=== PATIENT | male | born 1935 | race Caucasian/White ===

== ENCOUNTER → 2016-11-24 | Outpatient (CLI) | payer OTHER, MEDICARE ==
[~2016-11-24] MED LIST: IOPAMIDOL (ISOVUE 370) 100 ML BTL IV ONE
== END ==
LOC: FIMAGING 09:44
PROVIDERS: ATTEND Surgery
DX: I65.23 Occlusion and stenosis of bilateral carotid arteries (principal)
CPT/HCPCS: 70498; Q9967

== ENCOUNTER 2016-12-22 13:19 | Inpatient (IN) | payer OTHER, MEDICARE ==
[2016-12-22] MEDS ORDERED: LIDOCAINE 1% 2 ML INJ ID PRN (13:35)
[2016-12-22] MEDS ORDERED: LR 1,000 ML IV ONE (13:35)
[2016-12-22] MEDS ORDERED: THROMBIN (BOVINE) 5,000 UNIT VIAL TP ONE (13:52)
[2016-12-22] MEDS ORDERED: BUPIVACAINE 0.5% 30 ML SDV ONE (13:52)
--- NOTE | 2016-12-22 14:22 | PDHPUP ---
History & Physical Update H&P update statement: This history and physical update is based on an assessment of the patient which was completed after admission or registration (within 24 hours), but prior to the surgery/procedure. H&P update: H&P reviewed & patient examined, no change in patient's condition since H&P completed
--- NOTE | 2016-12-22 14:29 | PDANEPAE ---
ANE History of Present Illness Here for L CEA ANE Past Medical History - Cardiovascular History Hx Hypertension: No Hx Arrhythmias: Yes Hx Chest Pain: No Hx Coronary Artery / Peripheral Vascular Disease: No Hx CHF / Valvular Disease: No Hx Palpitations: No Cardiovascular History Comment: NEW DX AFIB - Pulmonary History Hx COPD: No Hx Asthma/Reactive Airway Disease: No Hx Recent Upper Respiratory Infection: No Hx Oxygen in Use at Home: No Hx Sleep Apnea: No Sleep Apnea Screening Result - Last Documented: Positive - Neurologic History Hx Cerebrovascular Accident: Yes Hx Seizures: No Neurologic History Comment: STROKE, TIA EXPRESSIVE APHASIA - Endocrine History Hx Diabetes: No - Renal History Hx Renal Disorders: No - Liver History Hx Hepatic Disorders: No - Neurological & Psychiatric Hx Hx Neurological and Psychiatric Disorders: No - Cancer History Hx Cancer: Yes Cancer History Comment: PROSTATE, PROSTATECTOMY 2003. SKIN - Congenital Disorder History Hx Congenital Disorders: No - GI History Hx Gastrointestinal Disorders: Yes - Other Health History Other Health History: GLAUCOMA - Chronic Pain History Chronic Pain: Yes (LOWER BACK & WAIST) - Surgical History Prior Surgeries: CATARACT WITH GLAUCOMA SHUNTS/ STAINLESS STEEL (EX-PRESS) ANE Review of Systems Review of systems is: negative Review of Systems: - Exercise capacity METS (RN): 3 METS ANE Patient History - Allergies Allergies/Adverse Reactions: bimatoprost [From Lumigan] Allergy (Verified 12/17/16 14:36) Rash - Home Medications Home medications: home medication list seen and reviewed Home Medications: Aspirin [Aspirin 81mg (*)] 81 mg PO DAILY 12/17/16 [Last Taken 12/22/16] Atorvastatin Calcium [Lipitor 10 mg (*)] 10 mg PO DAILY@12 12/17/16 [Last Taken 12/22/16] Dorzolamide 2% [Trusopt 2% (*)] 1 drops EACHEYE BID@12/17/16 [Last Taken 12/22/16] Multivitamins [Multivitamin (*)] 1 each PO DAILY 12/17/16 [Last Taken 12/18/16] RX: Herbals/Supplements -Info Only 1 ea PO DAILY 12/17/16 [Last Taken 12/18/16] - NPO status NPO Status: no food or drink >8 hours NPO Since - Liquids (Date): 12/22/16 NPO Since - Liquids (Time): 11:30 NPO Since - Solids (Date): 12/21/16 NPO Since - Solids (Time): 22:00 - Anes Hx Anes Hx: no prior problems - Smoking Hx Smoking Status: Never smoked - Family Anes Hx Family Hx Anesthesia Complications: NONE ANE Labs/Vital Signs - Vital Signs Blood Pressure: 171/77 Heart Rate: 56 Respiratory Rate: 18 O2 Sat (%): 96 Height: 180.34 cm Weight: 86.636 kg ANE Physical Exam - Airway Neck exam: FROM Mallampati Score: Class 1 - Pulmonary Pulmonary: no respiratory distress ANE Anesthesia Plan Anesthesia Plan: general endotracheal anesthesia Lines/Monitors: arterial line
--- NOTE | 2016-12-22 14:36 | POSTOPPROG ---
Post Op Note Date of Operation: 12/22/16 Surgeon: Donato Dietz Gel Coater: Irwin France Anesthesiologist: Isra Elias Anesthesia: GET(General Endotracheal) Pre-op Diagnosis: Bilateral carotid stenosis Post-op Diagnosis: Same Indication: Prior CVA Procedure: Left CEA Inf/Abcess present in the surg proc area at time of surgery?: No EBL: Minimal Specimen(s): plaque
[2016-12-22] MEDS ORDERED: HYDROmorphONE/DILAUDID 1 MG/ML INJ IVP PRN ×3 (14:37→17:19)
[2016-12-22] MEDS ORDERED: ACETAMINOPHEN 325 MG TAB PO PRN (14:37)
[2016-12-22] MEDS ORDERED: ONDANSETRON 4 MG/2 ML VIAL IVP PRN ×2 (14:37→15:49)
[2016-12-22] MEDS ORDERED: fentaNYL 100 MCG/2 ML INJ ONE ×2 (14:47→15:21)
[2016-12-22] MEDS ORDERED: PROPOFOL/EMULSION 500 MG/50 ML BOTTLE IV ONE (14:50)
[2016-12-22] MEDS ORDERED: LR 500 ML IV PRN (15:49)
[2016-12-22] MEDS ORDERED: PROMETHAZINE HCL 25 MG/ML INJ IVP PRN (15:49)
[2016-12-22] MEDS ORDERED: NALOXONE HCL 0.4 MG/ML INJ IVP PRN ×3 (15:49→17:19)
[2016-12-22] MEDS ORDERED: ALBUTEROL 3 ML DEYVIAL IH PRN ×2 (15:49→17:19)
[2016-12-22] MEDS ORDERED: fentaNYL 100 MCG/2 ML INJ IVP PRN ×2 (15:49→17:19)
[2016-12-22] MEDS ORDERED: SURGIFLO MATRIX KIT WITH THROMBIN TP ONE (16:40)
[2016-12-22] MEDS ORDERED: SUGAMMADEX SODIUM 200 MG/2 ML VIAL IVP ONE (16:43)
[2016-12-22] MEDS ORDERED: LABETALOL HCL 5 MG/ML 20 ML MDV ONE (16:43)
[2016-12-22] MEDS ORDERED: METOPROLOL TARTRATE 5 MG/5 ML INJ ONE (16:57)
[2016-12-22] MEDS ORDERED: LABETALOL HCL 5 MG/ML 20 ML MDV IVP PRN (17:18)
[2016-12-22] MEDS ORDERED: DEXAMETHASONE 4 MG/ML VIAL IVP PRN (17:19)
[2016-12-22] MEDS: HYDROCODONE/APAP 5/325 TAB PO PRN ×2 (19:49→23:04)
[2016-12-22] MEDS: IBUPROFEN 600 MG TAB PO SCH (20:49)
[2016-12-22] MEDS: DORZOLAMIDE 2% OPTH DROPS EACHEYE SCH (21:00)
[2016-12-23] MEDS: HYDROCODONE/APAP 5/325 TAB PO PRN (03:34)
[2016-12-23] MEDS: IBUPROFEN 600 MG TAB PO SCH (06:03)
[2016-12-23 08:04] VITALS: BP 111/66; PULSE 90; RESP 20; TEMP 98.6
[2016-12-23] MEDS: DORZOLAMIDE 2% OPTH DROPS EACHEYE SCH (08:22)
--- NOTE | 2016-12-23 08:36 | GOP ---
[f rep st] OPERATIVE REPORT DATE OF OPERATION: 12/22/2016 SURGEON: Donato Dietz MD CHANNELER RUNNER: Irwin France MD. ANESTHESIA: General. ANESTHESIOLOGIST: Dr. Isra Elias. PREOPERATIVE DIAGNOSIS: 1. Bilateral high-grade carotid stenosis. 2. History of stroke. POSTOPERATIVE DIAGNOSIS: 1. Bilateral high-grade carotid stenosis. 2. History of stroke. PROCEDURE PERFORMED: Left carotid endarterectomy. FINDINGS: INDICATIONS: An 81-year-old male with bilateral high-grade carotid artery stenoses and a recent stro ke. He is undergoing a left-sided carotid endarterectomy at this time. Risks and benefits were expl ained, including bleeding, infection, recurrent stenosis, nerve injury, stroke, heart attack, arrhyth virgil, as well as others. All questions were entertained. He desires to proceed. DESCRIPTION OF PROCEDURE: After general anesthesia was induced, the neck was preinjected with 0.5% M arcaine with epinephrine along the superficial cervical plexus and along the upper neck. Intraoperat jeffry ultrasonography was used to identify the carotid bifurcation, which is high riding beneath the le joaquín of the mandible. A longitudinal incision was created along the anterior aspect of the sternoclei domastoid muscle. The platysma muscle was divided. The anterior border of the sternocleidomastoid m uscle was dissected out to allow exposure of the carotid sheath. The facial vein branch was identifi ed, circumferentially encompassed, and divided between clamps and ties. The bifurcation was extremel y high riding just at the level of the digastric muscle. This and the hypoglossal nerve were easily identified and dissected off the neurovascular bundle. The superior thyroid artery was encompassed b etween vessel loops. The common carotid artery was circumferentially encompassed, as were the buying intern al and external carotid arteries. There was an extremely large calcific plaque coursing the first 2. 5 cm of the internal carotid artery. Distal to this was a very soft, normal-appearing, redundant seg ment of the carotid artery. A heparin bolus was administered. Occluding clamps were placed upon all 3 vessels. A longitudinal arteriotomy was created through the carotid bifurcation up into the inter nal carotid artery. The plaque was a combination of extremely friable, cheesy atheroma with a large, calcified outer shell. Using a [place] elevator, the plaque was completely dissected throughout its e ntirety. An excellent smooth tapering endpoint was obtained within the internal carotid artery. The artery was cleared of all loose fronds, as well as atheromatous deposits. Arteries were all fore-bl ed and back-bled. The internal carotid artery was of large size; thus, a patch was not utilized. Th e artery was closed in primary fashion with a running 6-0 Prolene suture. The arteries were forward- bled and back-bled for final closure, with flow being established through the external carotid artery , followed by the internal carotid artery. Excellent hemostasis was assured. The hypoglossal and va yunior nerves were confirmed intact. FLOSEAL was placed along the suture line prior to closure. The mu scle layers were all closed in layers, and subcutaneous layers were all closed with absorbable suture , followed by Dermabond. The patient was extubated in the operating room, moving all 4 extremities w ell, and taken to recovery room in good condition. Copy requested to: MARIO ALBERTO Cantor [facility] /[id number]/MODL
[2016-12-23 08:50] VITALS: O2SAT 92
--- NOTE | 2016-12-23 08:50 | SOAPPROG ---
SOAP Progress Note Assessment/Plan: Assessment:no c/o. no pain. no MATHEW. no cp or sob. no difficulty swallowing. avss. comfortable. neuro normal (tongue midline, normal bue/ble stregth and sensation). heart reg. lungs clear. neck large soft superficial ecchymosis. no bruit. 2+ pulse. no deep swelling. s/p l cea - doing great. neuro normal. home today. to start eliquis next week. ofc f/u as scheduled. reviewed with pt/dtr/nursing staff Plan: 12/23/16 08:48 Objective: Vital Signs Temp Pulse Resp BP Pulse Ox 37.0 C 90 20 111/66 87 L 12/23/16 07:58 12/23/16 07:58 12/23/16 07:58 12/23/16 07:58 12/23/16 07:58 12/22/16 12/23/16 12/24/16 05:59 05:59 05:59 Intake Total 400 Output Total 500 Balance -100 ICD10 Worksheet Patient Problems: Problems Problem Status Onset Carotid stenosis, symptomatic, with infarction Acute - ICD10 Problem Qualifiers (1) Carotid stenosis, symptomatic, with infarction
[2016-12-23] MEDS ORDERED: ASPIRIN 81 MG CHEWABLE TAB PO SCH (09:00)
--- NOTE | 2016-12-23 11:37 | ASDISCHSUM ---
Discharge Information Plan Status:Home with No Needs Medically Cleared to Leave:12/23/2016 Discharge Date:12/23/2016 09:22 AM CM D/C Disposition:Home, Routine, Self-Care ADT D/C Disposition:Home, Routine, Self-Care Projected Discharge Date:12/23/2016 09:22 AM Transportation at D/C:Family Discharge Delay Reason: Follow-Up Date:12/23/2016 09:22 AM Discharge Slot: Final Diagnosis: Placement Information Patient Contact Information Contact Name:MICHAEL Relationship:Daughter Address:[address] City:[place] Alternate Phone: State/Zip Code:[place] [address] Email: Financial Information Financial Class:CHRISTEN Primary Plan Desc:MEDICARE INPATIENT Primary Plan Number:[id number] Secondary Plan Desc:[employer]/MDR SUPPLEMENT Secondary Plan Number:[id number] Assessment Information Intervention Information
[2016-12-23] MEDS ORDERED: ATORVASTATIN CALCIUM 10 MG TAB PO SCH (12:00)
--- NOTE | 2016-12-23 13:52 | GDS ---
[f rep st] DISCHARGE SUMMARY REASON FOR ADMISSION: Symptomatic carotid stenosis. HOSPITAL COURSE: 81-year-old male with symptomatic bilateral carotid stenosis. He underwent an uncomplicated left carotid endarterectomy. He was discharged to home the following morning in good condition and neurologically intact. He was to resume all pre-hospital medications. No diet or activity restrictions were offered. He will start Eliquis for his newly diagnosed paroxysmal atrial fibrillation next week. He will be seen in followup by Dr. Dietz in 2 weeks as scheduled. Full discharge instructions were explained to the patient and daughter prior to leaving. /[id number]/MODL MTDD
== END 2016-12-23 09:22 | disposition home or self-care (01) | DRG 39 ==
LOC: F3E 13:19 → F2W 18:31
PROVIDERS: ADMIT Surgery; ATTEND Surgery
PROC: 03CL0ZZ Extirpation of Matter from Left Internal Carotid Artery, Open Approach (ICD-10-PCS; principal; 2016-12-22 15:00)
DX: I65.23 Occlusion and stenosis of bilateral carotid arteries (principal); I48.0 Paroxysmal atrial fibrillation; Z86.73 Personal history of transient ischemic attack (TIA), and cerebral infarction without residual deficits
CPT/HCPCS: J1644; J2704; J3010; J3490

== ENCOUNTER 2017-02-16 09:49 | Inpatient (IN) | payer OTHER, MEDICARE ==
[2017-02-16] MEDS ORDERED: LIDOCAINE 1% 2 ML INJ ID PRN (12:32)
[2017-02-16] MEDS ORDERED: LR 1,000 ML IV ONE (12:32)
[2017-02-16] MEDS ORDERED: BUPIVACAINE/EPI 0.5% 30 ML SDV ONE (14:33)
[2017-02-16] MEDS ORDERED: THROMBIN (BOVINE) 5,000 UNIT VIAL TP ONE (14:34)
[2017-02-16] MEDS ORDERED: fentaNYL 100 MCG/2 ML INJ ONE ×2 (14:46→19:08)
[2017-02-16] MEDS ORDERED: PROPOFOL/EMULSION 500 MG/50 ML BOTTLE IV ONE (14:46)
--- NOTE | 2017-02-16 15:00 | PDANEPAE ---
ANE Past Medical History - Cardiovascular History Hx Hypertension: No Hx Arrhythmias: Yes Hx Chest Pain: No Hx Coronary Artery / Peripheral Vascular Disease: No Hx CHF / Valvular Disease: No Hx Palpitations: No Cardiovascular History Comment: TIA due to B carotid stenosis. NEW DX AFIB - Pulmonary History Hx COPD: No Hx Asthma/Reactive Airway Disease: No Hx Recent Upper Respiratory Infection: No Hx Oxygen in Use at Home: No Hx Sleep Apnea: No Sleep Apnea Screening Result - Last Documented: Positive - Neurologic History Hx Cerebrovascular Accident: Yes Hx Seizures: No Neurologic History Comment: STROKE, TIA EXPRESSIVE APHASIA - Endocrine History Hx Diabetes: No - Renal History Hx Renal Disorders: No - Liver History Hx Hepatic Disorders: No - Neurological & Psychiatric Hx Hx Neurological and Psychiatric Disorders: No - Cancer History Hx Cancer: Yes Cancer History Comment: PROSTATE, PROSTATECTOMY 2003. SKIN - Congenital Disorder History Hx Congenital Disorders: No - GI History Hx Gastrointestinal Disorders: Yes - Other Health History Other Health History: GLAUCOMA - Chronic Pain History Chronic Pain: Yes (LOWER BACK & WAIST) - Surgical History Prior Surgeries: Left carotid endarterectomy. CATARACT removal. GLAUCOMA SHUNTS/ STAINLESS STEEL (EX-PRESS). prostate sx ANE Review of Systems Review of Systems: - Exercise capacity METS (RN): 4 METS ANE Patient History - Allergies Allergies/Adverse Reactions: bimatoprost [From Lumigan] Allergy (Verified 12/17/16 14:36) Rash - Home Medications Home Medications: Aspirin [Aspirin 81mg (*)] 81 mg PO DAILY 12/17/16 [Last Taken 02/16/17 08:00] Atorvastatin Calcium [Lipitor 10 mg (*)] 5 mg PO DAILY 12/17/16 [Last Taken 07/29 10:00] Dorzolamide 2% [Trusopt 2% (*)] 1 drops EACHEYE BID 12/17/16 [Last Taken 07:00] Herbals/Supplements -Info Only 1 ea PO DAILY 12/17/16 [Last Taken 02/09/17] Multivitamins [Multivitamin (*)] 1 each PO DAILY 12/17/16 [Last Taken 02/09/17] - NPO status NPO Since - Liquids (Date): 02/16/17 NPO Since - Liquids (Time): 11:00 NPO Since - Solids (Date): 02/15/17 NPO Since - Solids (Time): 22:00 - Smoking Hx Smoking Status: Never smoked - Family Anes Hx Family Hx Anesthesia Complications: NONE ANE Labs/Vital Signs - Vital Signs Blood Pressure: 133/81 Heart Rate: 58 Respiratory Rate: 16 O2 Sat (%): 94 Height: 185.42 cm Weight: 86.636 kg ANE Physical Exam - Airway Neck exam: decreased ROM Mallampati Score: Class 2 Mouth exam: normal dental/mouth exam - Pulmonary Pulmonary: no respiratory distress, no rales or rhonchi, clear to auscultation, reduced air movement - Cardiovascular Cardiovascular: regular rate and rhythym, no murmur, rub, or gallop, bradycardia - ASA Status ASA Status: III
[2017-02-16] MEDS ORDERED: ONDANSETRON 4 MG/2 ML VIAL IVP PRN (15:05)
[2017-02-16] MEDS ORDERED: ACETAMINOPHEN 325 MG TAB PO PRN (15:05)
--- NOTE | 2017-02-16 15:05 | POSTOPPROG ---
Post Op Note Date of Operation: 02/16/17 Surgeon: Donato Dietz Supervisor Hard Candy: Irwin France Anesthesiologist: Camille Ro Anesthesia: GET(General Endotracheal) Pre-op Diagnosis: Right Carotid Stenosis Post-op Diagnosis: Same Procedure: Right CEA Findings: Tortuous 90+% ICA Inf/Abcess present in the surg proc area at time of surgery?: No EBL: Minimal Specimen(s): plaque
[2017-02-16] MEDS ORDERED: DEXAMETHASONE 4 MG/ML VIAL IVP PRN (15:59)
[2017-02-16] MEDS ORDERED: ENALAPRILAT DIHYDRATE 1.25 MG/ML VIAL IVP PRN (15:59)
[2017-02-16] MEDS ORDERED: NALOXONE HCL 0.4 MG/ML INJ IVP PRN (15:59)
[2017-02-16] MEDS ORDERED: PHENYLEPHRINE HCL 100 MCG/ML SYR IVP PRN (15:59)
[2017-02-16] MEDS ORDERED: LR 500 ML IV PRN (15:59)
[2017-02-16] MEDS ORDERED: ALBUTEROL 3 ML DEYVIAL IH PRN (15:59)
[2017-02-16] MEDS ORDERED: LIDOCAINE 2% 5 ML SDV ONE (16:02)
[2017-02-16] MEDS ORDERED: SUGAMMADEX SODIUM 200 MG/2 ML VIAL IVP ONE (16:02)
[2017-02-16] MEDS ORDERED: HEPARIN 10,000 UNIT/10 ML MDV ONE (16:02)
[2017-02-16] MEDS ORDERED: ONDANSETRON 4 MG/2 ML VIAL ONE (16:02)
[2017-02-16] MEDS ORDERED: ROCURONIUM 50 MG/5 ML VIAL ONE (16:02)
[2017-02-16] MEDS ORDERED: PROPOFOL 200 MG/20 ML VIAL ONE (16:28)
[2017-02-16] MEDS ORDERED: SURGIFLO MATRIX KIT WITH THROMBIN 8ml TP ONE (17:04)
--- NOTE | 2017-02-16 17:43 | POSTANESTH ---
Post Anesthetic Evaluation Cardiovascular Status: Normal, Stable, Similar to Pre-Op Cond Respiratory Status: Normal, Stable, Similar to Pre-op Cond. Level of Consciousness/Mental Status: Mildly Sleepy, Arousable Pain Control: Adequate, Prn Tx Ordered Nausea/Vomiting Control: Adequate, Prn Tx Ordered Complications Possibly Related to Anesthesia: None Noted
[2017-02-16] MEDS ORDERED: ACETAMINOPHEN 325 MG TAB ONE (18:44)
[2017-02-16] MEDS: fentaNYL 100 MCG/2 ML INJ IVP PRN ×2 (19:09→19:18)
[2017-02-16] MEDS: IBUPROFEN 600 MG TAB PO SCH (21:38)
[2017-02-16] MEDS: HYDROCODONE/APAP 5/325 TAB PO PRN (21:48)
[2017-02-16] MEDS: DORZOLAMIDE 2% OPTH DROPS EACHEYE SCH (22:00)
--- NOTE | 2017-02-16 22:51 | GOP ---
[f rep st] OPERATIVE REPORT DATE OF OPERATION: 02/16/2017 SURGEON: Donato Dietz MD CHEMICAL CELL CHANGER: Irwin France MD ANESTHESIA: General. ANESTHESIOLOGIST: Dr Ro. PREOPERATIVE DIAGNOSIS: Right carotid stenosis. POSTOPERATIVE DIAGNOSIS: Right carotid stenosis. PROCEDURE PERFORMED: Right carotid endarterectomy. FINDINGS: See below. INDICATIONS: [id number] male with a bilateral high-grade carotid stenosis with prior stroke. He underwent a recent uneventful left carotid endarterectomy. He presents today for a right carotid endarterectomy. Surgical risks and benefits were explained of bleeding, infection, recurrent stenosis, stroke, nerve injury, cardio respiratory complications as well as others. All questions were answered. He desires to proceed. DESCRIPTION OF PROCEDURE: Prior to induction of general anesthesia, fiberoptic laryngoscopy was performed. Normal vocal cord mobility was noted with an E and A phonation. The scope was withdrawn. General anesthesia was subsequently induced. Local anesthetic was infiltrated along the sternocleidomastoid musculature. A longitudinal incision was created along the anterior border. The ansa cervicals was divided. The common carotid artery as well as internal, external and superior thyroid arteries were all circumferentially encompassed with vessel loops. As noted on the opposite side, the internal carotid artery was notably tortuous with a firm plaque within the bulb and proximal ICA. A heparin bolus was administered. The arteries were all occluded. The hypoglossal nerve had been identified and preserved as was the vagus nerve. The carotid arteriotomy was performed through the distal common carotid artery up and through the internal carotid artery. The poorly defined plaque was removed using a [place] elevator. This was taken to a smooth tapering endpoint within the internal carotid artery. All loose fronds were all individually retrieved. The arteries were all forward-bled and back-bled. Tacking sutures were placed upon the internal carotid artery intima. The arteriotomy was closed with a running 6-0 Prolene suture without the need for patching given the generous size of the patient's arteries. The arteries were again forebled and back bled through the external carotid artery prior to opening a flow back into the internal. Satisfactory hemostasis was assured. The neck was closed in layers with absorbables by Dermabond. The patient was taken to recovery room , extubated in good condition. He was noted to be moving all 4 extremities without difficulty. Copy requested to: Leah Clark /[id number]/MODL MTDD
--- NOTE | 2017-02-16 23:43 | SOAPPROG ---
SOAP Progress Note Assessment/Plan: Assessment: called by nursing staff regarding increasing neck swelling over last couple of hours. patient notes increasing discomfort with swallowing. vs 117/57. p 52. 97% 2L. comfortable. large right neck hematoma - deep. trachea midline. needs drainage. OR notified. patient and daughter at bedside in agreement. all questions entertained. Plan: 02/16/17 23:41 Objective: Vital Signs Temp Pulse Resp BP Pulse Ox 36.5 C 52 L 16 117/57 L 97 02/16/17 23:00 02/16/17 23:00 02/16/17 23:00 02/16/17 23:00 02/16/17 23:00 02/15/17 02/16/17 02/17/17 05:59 05:59 05:59 Intake Total 2400 Output Total 100 Balance 2300 ICD10 Worksheet Patient Problems: Problems Problem Status Onset Carotid stenosis, symptomatic, with infarction Acute
[2017-02-17] MEDS ORDERED: ONDANSETRON 4 MG/2 ML VIAL ONE ×2 (00:02→00:28)
--- NOTE | 2017-02-17 00:04 | PDANEPAE ---
ANE History of Present Illness 81 yo male s/p CEA today now with neck hematoma. ANE Past Medical History - Cardiovascular History Hx Hypertension: No Hx Arrhythmias: Yes Hx Chest Pain: No Hx Coronary Artery / Peripheral Vascular Disease: No Hx CHF / Valvular Disease: No Hx Palpitations: No Cardiovascular History Comment: TIA due to B carotid stenosis. NEW DX AFIB - Pulmonary History Hx COPD: No Hx Asthma/Reactive Airway Disease: No Hx Recent Upper Respiratory Infection: No Hx Oxygen in Use at Home: No Hx Sleep Apnea: No Sleep Apnea Screening Result - Last Documented: Positive - Neurologic History Hx Cerebrovascular Accident: Yes Hx Seizures: No Neurologic History Comment: STROKE, TIA EXPRESSIVE APHASIA - Endocrine History Hx Diabetes: No Hypothyroid: No - Renal History Hx Renal Disorders: No - Liver History Hx Hepatic Disorders: No - Neurological & Psychiatric Hx Hx Neurological and Psychiatric Disorders: No - Cancer History Hx Cancer: Yes Cancer History Comment: PROSTATE, PROSTATECTOMY 2003. SKIN - Congenital Disorder History Hx Congenital Disorders: No - GI History Hx Gastrointestinal Disorders: Yes - Other Health History Other Health History: GLAUCOMA - Chronic Pain History Chronic Pain: Yes (LOWER BACK & WAIST) - Surgical History Prior Surgeries: Left carotid endarterectomy. CATARACT removal. GLAUCOMA SHUNTS/ STAINLESS STEEL (EX-PRESS). prostate sx ANE Review of Systems Review of Systems: - Exercise capacity METS (RN): 4 METS - Systems Constitutional: Reports: diaphoresis Gastrointestinal: Reports: nausea Muscolosketal: Reports: neck pain (R neck hurts.) ANE Patient History - Allergies Allergies/Adverse Reactions: bimatoprost [From Lumigan] Allergy (Verified 12/17/16 14:36) Rash - Home Medications Home Medications: Aspirin [Aspirin 81mg (*)] 81 mg PO DAILY 12/17/16 [Last Taken 02/16/17 08:00] Atorvastatin Calcium [Lipitor 10 mg (*)] 5 mg PO DAILY 12/17/16 [Last Taken 07/29 10:00] Dorzolamide 2% [Trusopt 2% (*)] 1 drops EACHEYE BID 12/17/16 [Last Taken 07:00] Herbals/Supplements -Info Only 1 ea PO DAILY 12/17/16 [Last Taken 02/09/17] Multivitamins [Multivitamin (*)] 1 each PO DAILY 12/17/16 [Last Taken 02/09/17] - NPO status NPO Since - Liquids (Date): 02/16/17 NPO Since - Liquids (Time): 22:00 NPO Since - Solids (Date): 02/16/17 NPO Since - Solids (Time): 22:00 - Anes Hx Anes Hx: no prior problems - Smoking Hx Smoking Status: Never smoked - Alcohol Use Alcohol Use: None - Family Anes Hx Family Anes Hx: neg - N/A Family Hx Anesthesia Complications: NONE ANE Labs/Vital Signs - Vital Signs Blood Pressure: 117/57 Heart Rate: 52 Respiratory Rate: 16 O2 Sat (%): 97 Height: 185.42 cm Weight: 86.636 kg ANE Physical Exam - Airway Neck exam: increased neck circumference Mallampati Score: Class 3 - Pulmonary Pulmonary: clear to auscultation - Cardiovascular Cardiovascular: regular rate and rhythym - ASA Status ASA Status: III, E ANE Anesthesia Plan Anesthesia Plan: general endotracheal anesthesia
[2017-02-17] MEDS ORDERED: fentaNYL 250 MCG/5 ML INJ ONE (00:08)
[2017-02-17] MEDS ORDERED: PROPOFOL/EMULSION 500 MG/50 ML BOTTLE IV ONE (00:08)
[2017-02-17] MEDS ORDERED: ONDANSETRON 4 MG/2 ML VIAL IVP ONE (00:09)
[2017-02-17] MEDS ORDERED: BUPIVACAINE/EPI 0.5% 30 ML SDV ONE (00:29)
[2017-02-17] MEDS ORDERED: SUGAMMADEX SODIUM 200 MG/2 ML VIAL IVP ONE ×2 (00:32→00:52)
[2017-02-17] MEDS ORDERED: epHEDrine SULFATE 10 MG/ML SYR ONE ×2 (00:34→00:39)
[2017-02-17] MEDS ORDERED: LR 1,000 ML IV ONE (00:39)
[2017-02-17] MEDS ORDERED: ACETAMINOPHEN 500 MG TAB PO PRN (00:43)
[2017-02-17] MEDS ORDERED: ALBUTEROL 3 ML DEYVIAL IH PRN (00:43)
[2017-02-17] MEDS ORDERED: PROMETHAZINE HCL 25 MG/ML INJ IVP PRN (00:43)
[2017-02-17] MEDS ORDERED: NALOXONE HCL 0.4 MG/ML INJ IVP PRN (00:43)
[2017-02-17] MEDS ORDERED: fentaNYL 100 MCG/2 ML INJ IVP PRN (00:43)
[2017-02-17] MEDS ORDERED: HYDROCODONE/APAP 5/325 TAB PO PRN (00:43)
--- NOTE | 2017-02-17 00:58 | POSTOPPROG ---
Post Op Note Date of Operation: 02/17/17 Surgeon: Donato Dietz Anesthesiologist: Kallie Alvarez Anesthesia: GET(General Endotracheal) Pre-op Diagnosis: Postop neck hematoma Post-op Diagnosis: Same Procedure: Drainage of right neck hematoma Findings: subplatysmal isolated arterial muscle bleeding Inf/Abcess present in the surg proc area at time of surgery?: No EBL: Minimal
--- NOTE | 2017-02-17 01:26 | POSTANESTH ---
Post Anesthetic Evaluation Cardiovascular Status: Other, See Comment (irregular rhythm, will obtain 12 lead EKG for further evaluation. Pt has h/o Afib. BP stable.) Respiratory Status: Normal, Stable Level of Consciousness/Mental Status: Can Participate in Eval, Mildly Sleepy, Arousable Pain Control: Adequate, Prn Tx Ordered Nausea/Vomiting Control: Adequate, Prn Tx Ordered Complications Possibly Related to Anesthesia: None Noted
--- NOTE | 2017-02-17 01:35 | CPEKG ---
Heart Rate: 65 RR Interval: 923 P-R Interval: 196 QRSD Interval: 96 QT Interval: 440 QTC Interval: 458 P [place]: 51 QRS [place]: -25 T Wave [place]: -35 EKG Severity - ABNORMAL ECG - EKG Impression: SINUS RHYTHM EKG Impression: MULTIPLE ATRIAL PREMATURE COMPLEXES EKG Impression: BORDERLINE LEFT AXIS DEVIATION EKG Impression: BORDERLINE T ABNORMALITIES, INFERIOR LEADS Electronically Signed By: Luz Bass 17-Feb-2017 23:08:53
--- NOTE | 2017-02-17 04:17 | GOP ---
[f rep st] OPERATIVE REPORT DATE OF OPERATION: 02/17/2017 SURGEON: Donato Dietz MD ANESTHESIA: General. ANESTHESIOLOGIST: Dr. Brandon PREOPERATIVE DIAGNOSIS: Postoperative neck hematoma. POSTOPERATIVE DIAGNOSIS: Postoperative neck hematoma. PROCEDURE PERFORMED: Incision and drainage of right neck postoperative hematoma. FINDINGS: Solitary subplatysmal bleeding vessel - cauterized. INDICATIONS: 81-year-old male status post right carotid endarterectomy earlier this afternoon. He has developed a tense neck hematoma late this evening. He is undergoing surgical evacuation at this time. DESCRIPTION OF PROCEDURE: After general anesthesia was induced, the neck was reopened. There was isolated area of arterial bleeding coming from just beneath the platysma muscle in the lower aspect of the incision. This area was easily controlled using electrocautery. The remaining wound was opened up. The blood was evacuated out of the deep neck cavity. The anastomosis appeared widely patent without evidence of bleeding. There was no evidence of a deep- seated bleeding at any point. The neck was irrigated and observed for multiple minutes showing no evidence of ongoing blood reaccumulation. The neck was again closed in layers with absorbable suture followed by Dermabond. Local anesthetic was infiltrated throughout. The patient was extubated in the operating room and taken to recovery uneventfully. He remained neurologically intact upon completion. /[id number]/MODL MTDD
[2017-02-17] MEDS: IBUPROFEN 600 MG TAB PO SCH ×2 (06:14→14:08)
[2017-02-17] MEDS: DORZOLAMIDE 2% OPTH DROPS EACHEYE SCH (06:16)
[2017-02-17] MEDS: HYDROCODONE/APAP 5/325 TAB PO PRN (07:32)
[2017-02-17] MEDS ORDERED: ASPIRIN 81 MG CHEWABLE TAB PO SCH (09:00)
[2017-02-17] MEDS ORDERED: ATORVASTATIN CALCIUM 10 MG TAB PO SCH (09:00)
--- NOTE | 2017-02-17 11:33 | ASMTCASEMG ---
Living Arrangements What is your living Answers: Alone arrangement? Who do you live with? Type Of Residence What kind of residence do Answers: House you live in? Discharge Plan Comments Coordination Status Comments Notes: Pt is a 81 y/o man admitted for bilat ICA stenosis. Pt discharged independent w/out any needs. Plan: Independent Date Signed: 02/17/2017 11:33 AM Electronically Signed By:CHAPARRO Marroquin
[2017-02-17 12:14] VITALS: BP 123/78; PULSE 97; RESP 20; TEMP 97.8; O2SAT 95
--- NOTE | 2017-02-17 12:39 | SOAPPROG ---
SOAP Progress Note Assessment/Plan: Assessment: excellent progress since hematoma drainage. no pain. no further difficulty swallowing. no neurologic complaints. has been able to walk. afebrile. bp 120's. p 80's. comfortable. neuro normal (symmetric smile, tongue midline, normal BUE/BLE, normal speech). neck flat - appropriate ecchymosis. incision clean. 2+ carotid pulse. heart reg. lungs clear. doing very well s/p r cea with hematoma drainage. anticipate dc to home later today. will hold off eliquis until wednesday. care plan reviewed with patient, dtr, and nursing staff. called by nursing staff regarding increasing neck swelling over last couple of hours. patient notes increasing discomfort with swallowing. vs 117/57. p 52. 97% 2L. comfortable. large right neck hematoma - deep. trachea midline. needs drainage. OR notified. patient and daughter at bedside in agreement. all questions entertained. Plan: 02/16/17 23:41 02/17/17 12:37 Objective: Vital Signs Temp Pulse Resp BP Pulse Ox 36.6 C 97 20 123/78 H 95 02/17/17 12:12 02/17/17 12:12 02/17/17 12:12 02/17/17 12:12 02/17/17 12:12 02/16/17 02/17/17 02/18/17 05:59 05:59 05:59 Intake Total 4600 Output Total 600 Balance 4000 ICD10 Worksheet Patient Problems: Problems Problem Status Onset Carotid stenosis, symptomatic, with infarction Acute
--- NOTE | 2017-02-18 00:16 | GDS ---
[f rep st] DISCHARGE SUMMARY REASON FOR ADMISSION: Right carotid artery stenosis. HOSPITAL COURSE: 81-year-old male admitted for right carotid endarterectomy. He underwent the aforementioned procedure. Postoperatively, he was taken back to the operating room for drainage of a delayed platysma muscle bleed. This was controlled using electrocautery. The patient had an otherwise uneventful recovery. He was discharged to home on postop day #1 in good condition, tolerating a regular diet with adequate pain control with oral analgesics. He was hemodynamically normal throughout the day without evidence of further bleeding sequalae. He was to resume all pre-hospital medications including aspirin, Lipitor, Trusopt eye drops, ibuprofen as needed for discomfort. He will restart his Eliquis on Wednesday. He will be seen by Dr. Dietz in 2 weeks. Full discharge instructions were explained to the patient and daughter at bedside. /[id number]/MODL MTDD
--- NOTE | 2017-02-18 12:13 | ASDISCHSUM ---
Discharge Information Plan Status:Home with No Needs Medically Cleared to Leave:02/16/2017 Discharge Date:02/17/2017 04:41 PM CM D/C Disposition: ADT D/C Disposition:Home, Routine, Self-Care Projected Discharge Date:02/17/2017 12:00 AM Transportation at D/C: Discharge Delay Reason: Follow-Up Date:02/17/2017 12:00 AM Discharge Slot: Final Diagnosis: Placement Information Patient Contact Information Contact Name:MICHAEL Relationship:Daughter Address:[address] City:[place] Alternate Phone: State/Zip Code:[place] [address] Email: Financial Information Financial Class: Primary Plan Desc:MEDICARE INPATIENT Primary Plan Number:[id number] Secondary Plan Desc:[employer]/M[employer] SUPPLEMENT Secondary Plan Number:[id number] Assessment Information [facility] Initial CM Assessment Living Arrangements What is your living Answers: Alone arrangement? Who do you live with? Type Of Residence What kind of residence do Answers: House you live in? Discharge Plan Comments Coordination Status Comments Notes: Pt is a 81 y/o man admitted for bilat ICA stenosis. Pt discharged independent w/out any needs. Plan: Independent Date Signed: 02/17/2017 11:33 AM Electronically Signed By:CHAPARRO Marroquin Intervention Information
== END 2017-02-17 16:41 | disposition home or self-care (01) | DRG 38 ==
LOC: F3E 12:20 → F2W 19:01
PROVIDERS: ADMIT Surgery; ATTEND Surgery
PROC: 03CK0ZZ Extirpation of Matter from Right Internal Carotid Artery, Open Approach (ICD-10-PCS; principal; 2017-02-16 14:00)
PROC: 0W360ZZ Control Bleeding in Neck, Open Approach (ICD-10-PCS; 2017-02-17)
PROC: 0W960ZZ Drainage of Neck, Open Approach (ICD-10-PCS; 2017-02-17)
DX: I65.21 Occlusion and stenosis of right carotid artery (principal); I97.638 Postprocedural hematoma of a circulatory system organ or structure following other circulatory system procedure; I48.0 Paroxysmal atrial fibrillation; Z79.01 Long term (current) use of anticoagulants; Z86.73 Personal history of transient ischemic attack (TIA), and cerebral infarction without residual deficits
CPT/HCPCS: J1644; J2370; J2405; J2704; J3010